=== PATIENT | female | born 1935 | race Caucasian/White ===

== ENCOUNTER 2017-07-04 01:38 | Inpatient (IN) ==
[2017-07-04] MEDS ORDERED: ONDANSETRON 4 MG/2 ML VIAL IV STA (01:50)
[2017-07-04] MEDS ORDERED: MORPHINE 2 MG/1 ML SYRINGE IV STA ×2 (01:50→03:49)
[2017-07-04] MEDS ORDERED: MORPHINE 2 MG/1 ML SYRINGE ONE ×3 (02:07→03:52)
[2017-07-04] MEDS ORDERED: ONDANSETRON 4 MG/2 ML VIAL ONE (02:07)
[2017-07-04 02:34] LABS: Basophils % 0.4 % (0.0-0.8); Eosinophils # 0.1 10*3/uL (0.0-0.87); Eosinophils % 0.9 % (0.00-10.9); Hematocrit 39.4 VOL% (35.7-47.0); Hemoglobin 13.2 GM/DL (12.0-16.0); Immature Granulocytes % 0.4 %; Immature Granulocytes Absolute 0.04 #; Lymphocytes # 2.9 10*3/uL (1.4-4.0); Lymphocytes % 26.3 % (21.3-54.2); Mean Corpuscular HGB Conc 33.5 GM/DL (32-36); Mean Corpuscular Hemoglobin 28 PG (27-34); Mean Corpuscular Volume 83.8 FL (87-102); Mean Platelet Volume 11.6 FL (9.6-12.0); Monocytes # 0.8 10*3/uL (0.11-0.8); Monocytes % 6.9 % (1.7-12.7); Neutrophils # 7.1 10*3/uL (1.4-7.4); Neutrophils % 65.1 % (38.7-73.9); Platelet Count 312 T/CUMM (130-400); Red Cell Distribution Width 14.7 % (9.3-17.3); White Blood Count 10.9 T/CUMM (4-12)
[2017-07-04 02:41] LABS: PT Patient Result 10.5 SECS
[2017-07-04] MEDS ORDERED: MAGNESIUM HYDROXIDE SUSP 30 ML UDCUP PO PRN (03:49)
[2017-07-04] MEDS: DEXTROSE 5% NACL 0.45% 1,000 ML IV SCH ×2 (06:10→16:35)
[2017-07-04 07:55] LABS: Apearance,Urine CLEAR (Clear); Bacteria,Urine Occasional /HPF (Few); Bilirubin,Urine Negative (Negative); Blood, Urine Moderate mg/dL (Negative); Glucose,Urine (UA) >=500 mg/dL (Negative); Hyaline Casts,Urine 1 /LPF (0-3); Ketones,Urine 5 mg/dL (Negative); Mucus,Urine Occasional /LPF (Occasional); Nitrite,Urine Negative (Negative); Protein,Urine Negative; RBC,Urine <1 /HPF (0-4); Urine Color Yellow (Yellow); Urine Specific Gravity 1.015 (1.001-1.035); Urine Urobilinogen < 2.0 EU/DL (0.2-1.0); WBC,Urine <1 /HPF (0-6)
[2017-07-04] MEDS ORDERED: ONDANSETRON 4 MG/2 ML VIAL IV PRN (11:25)
[2017-07-04] MEDS ORDERED: diphenhydrAMINE CAP 25 MG CAPSULE PO PRN (11:25)
[2017-07-04] MEDS ORDERED: GLUCAGON 1 MG VIAL IM PRN ×2 (11:49→12:58)
[2017-07-04] MEDS ORDERED: DEXTROSE 50% 25 GM/50 ML VIAL IV PRN ×2 (11:49→12:58)
[2017-07-04] MEDS: ATORVASTATIN 20 MG TABLET PO SCH (13:39)
[2017-07-04] MEDS: CHLORTHALIDONE 25 MG TABLET PO SCH (13:39)
[2017-07-04] MEDS: MORPHINE 2 MG/1 ML SYRINGE IV PRN ×3 (13:42→20:44)
[2017-07-04] MEDS ORDERED: INSULIN REGULAR 100 UNIT/ML SUBCUT SCH (16:30)
[2017-07-04] MEDS: INSULIN REGULAR 100 UNIT/ML SUBCUT SCH ×2 (16:35→21:49)
[2017-07-05] MEDS: DEXTROSE 5% NACL 0.45% 1,000 ML IV SCH ×3 (02:25→21:21)
[2017-07-05 06:09] LABS: Basophils % 0.2 % (0.0-0.8); Eosinophils # 0.2 10*3/uL (0.0-0.87); Eosinophils % 1.7 % (0.00-10.9); Hematocrit 34.2 VOL% (35.7-47.0); Hemoglobin 11.4 GM/DL (12.0-16.0); Immature Granulocytes % 0.3 %; Immature Granulocytes Absolute 0.03 #; Lymphocytes # 2.1 10*3/uL (1.4-4.0); Lymphocytes % 23.5 % (21.3-54.2); Mean Corpuscular HGB Conc 33.3 GM/DL (32-36); Mean Corpuscular Hemoglobin 29 PG (27-34); Mean Corpuscular Volume 85.9 FL (87-102); Mean Platelet Volume 11.1 FL (9.6-12.0); Monocytes # 0.9 10*3/uL (0.11-0.8); Neutrophils # 5.8 10*3/uL (1.4-7.4); Neutrophils % 64.3 % (38.7-73.9); Platelet Count 250 T/CUMM (130-400); Red Blood Count 3.98 MC/CUMM (3.8-5.5); Red Cell Distribution Width 14.8 % (9.3-17.3); White Blood Count 9.1 T/CUMM (4-12)
[2017-07-05 06:34] LABS: Calcium 8.1 MG/DL (8.5-10.1); Potassium 3.5 MMOL/L (3.5-5.1)
[2017-07-05 06:41] LABS: Albumin 2.9 G/DL (3.4-5.0); Bilirubin,Total 0.9 MG/DL (0.2-1.0); Calcium 8.4 MG/DL (8.5-10.1); Osmolality,Calculated 282.8 MOS/KG (273-304); Potassium 3.7 MMOL/L (3.5-5.1); Total Protein 5.7 G/DL (6.4-8.3)
[2017-07-05] MEDS: CHLORTHALIDONE 25 MG TABLET PO SCH (08:42)
[2017-07-05] MEDS: INSULIN REGULAR 100 UNIT/ML SUBCUT SCH ×4 (08:42→22:11)
[2017-07-05] MEDS ORDERED: CLINDAMYCIN INJ 50 ML IV ONE (09:52)
[2017-07-05] MEDS ORDERED: CLINDAMYCIN INJ 900 MG in PREMIX 1 EACH IV ONE (10:56)
[2017-07-05] MEDS ORDERED: BISACODYL 10 MG SUPP RECTAL PRN (11:20)
[2017-07-05] MEDS ORDERED: PROMETHAZINE 25 MG/1 ML VIAL IM PRN (11:20)
[2017-07-05] MEDS ORDERED: PROPOFOL 200 MG/20 ML VIAL IV ONE (11:32)
[2017-07-05] MEDS ORDERED: SODIUM CHLORIDE 0.9% 100 ML IV ONE (11:33)
[2017-07-05] MEDS ORDERED: MIDAZOLAM 2 MG/2 ML VIAL ONE (11:33)
[2017-07-05] MEDS ORDERED: LACTATED RINGERS 1,000 ML IV SCH (12:00)
[2017-07-05] MEDS ORDERED: HYDROmorphone 2 MG/1 ML VIAL IV PRN (12:04)
[2017-07-05] MEDS ORDERED: ONDANSETRON 4 MG/2 ML VIAL IV PRN (12:04)
[2017-07-05] MEDS ORDERED: ONDANSETRON 4 MG/2 ML VIAL ONE (12:06)
[2017-07-05] MEDS: MAGNESIUM OXIDE 400 MG TABLET PO SCH (16:20)
[2017-07-05] MEDS: MORPHINE 2 MG/1 ML SYRINGE IV PRN (17:08)
[2017-07-05] MEDS: ATORVASTATIN 20 MG TABLET PO SCH (18:14)
[2017-07-05] MEDS: metFORMIN 500 MG TABLET PO SCH (19:21)
[2017-07-05] MEDS: CLINDAMYCIN INJ 900 MG in PREMIX 1 EACH IV SCH (19:35)
[2017-07-05] MEDS: GLIMEPIRIDE 2 MG TABLET PO SCH (21:23)
[2017-07-06] MEDS: CLINDAMYCIN INJ 900 MG in PREMIX 1 EACH IV SCH (03:14)
[2017-07-06] MEDS: FONDAPARINUX 2.5 MG/0.5 ML SYRINGE SUBCUT SCH (05:50)
[2017-07-06 07:27] LABS: Basophils % 0.1 % (0.0-0.8); Eosinophils # 0.1 10*3/uL (0.0-0.87); Eosinophils % 1.8 % (0.00-10.9); Hematocrit 29.8 VOL% (35.7-47.0); Hemoglobin 9.8 GM/DL (12.0-16.0); Immature Granulocytes % 0.3 %; Immature Granulocytes Absolute 0.02 #; Lymphocytes # 1.4 10*3/uL (1.4-4.0); Mean Corpuscular HGB Conc 32.9 GM/DL (32-36); Mean Corpuscular Hemoglobin 28 PG (27-34); Mean Corpuscular Volume 85.4 FL (87-102); Mean Platelet Volume 11.5 FL (9.6-12.0); Monocytes # 0.8 10*3/uL (0.11-0.8); Monocytes % 10.9 % (1.7-12.7); Neutrophils # 5.3 10*3/uL (1.4-7.4); Neutrophils % 68.9 % (38.7-73.9); Platelet Count 203 T/CUMM (130-400); Red Blood Count 3.49 MC/CUMM (3.8-5.5); Red Cell Distribution Width 14.6 % (9.3-17.3); White Blood Count 7.7 T/CUMM (4-12)
[2017-07-06 07:43] LABS: Calcium 7.8 MG/DL (8.5-10.1); Osmolality,Calculated 270.5 MOS/KG (273-304)
[2017-07-06] MEDS: SODIUM CHLOR 0.9% KCL 20 MEQ 20 MEQ/1,000 ML BAG IV SCH ×2 (09:08→22:39)
[2017-07-06] MEDS: INSULIN REGULAR 100 UNIT/ML SUBCUT SCH ×4 (09:08→20:06)
[2017-07-06] MEDS: CHLORTHALIDONE 25 MG TABLET PO SCH (09:08)
[2017-07-06] MEDS: metFORMIN 500 MG TABLET PO SCH ×2 (09:09→16:43)
[2017-07-06] MEDS: GLIMEPIRIDE 2 MG TABLET PO SCH ×2 (09:09→20:06)
[2017-07-06] MEDS: MAGNESIUM OXIDE 400 MG TABLET PO SCH (09:09)
[2017-07-06] MEDS: ATORVASTATIN 20 MG TABLET PO SCH (09:09)
[2017-07-06] MEDS: ACETAMINOPHEN 325 MG TABLET PO PRN (14:48)
[2017-07-07] MEDS: FONDAPARINUX 2.5 MG/0.5 ML SYRINGE SUBCUT SCH (05:01)
[2017-07-07 06:08] LABS: Basophils % 0.2 % (0.0-0.8); Eosinophils # 0.3 10*3/uL (0.0-0.87); Eosinophils % 3.2 % (0.00-10.9); Hematocrit 29.1 VOL% (35.7-47.0); Immature Granulocytes % 0.5 %; Immature Granulocytes Absolute 0.04 #; Lymphocytes # 1.7 10*3/uL (1.4-4.0); Mean Corpuscular HGB Conc 34.4 GM/DL (32-36); Mean Corpuscular Hemoglobin 29 PG (27-34); Mean Corpuscular Volume 83.9 FL (87-102); Mean Platelet Volume 11.4 FL (9.6-12.0); Monocytes # 0.9 10*3/uL (0.11-0.8); Monocytes % 9.9 % (1.7-12.7); Neutrophils # 5.9 10*3/uL (1.4-7.4); Neutrophils % 67.2 % (38.7-73.9); Platelet Count 225 T/CUMM (130-400); Red Blood Count 3.47 MC/CUMM (3.8-5.5); Red Cell Distribution Width 14.7 % (9.3-17.3); White Blood Count 8.8 T/CUMM (4-12)
[2017-07-07] MEDS: INSULIN REGULAR 100 UNIT/ML SUBCUT SCH ×4 (08:15→21:02)
[2017-07-07 08:48] LABS: Albumin 2.3 G/DL (3.4-5.0); Bilirubin,Total 0.7 MG/DL (0.2-1.0); Calcium 7.9 MG/DL (8.5-10.1); Osmolality,Calculated 272.8 MOS/KG (273-304); Potassium 3.5 MMOL/L (3.5-5.1)
[2017-07-07] MEDS: ATORVASTATIN 20 MG TABLET PO SCH (10:00)
[2017-07-07] MEDS: metFORMIN 500 MG TABLET PO SCH ×2 (10:00→16:48)
[2017-07-07] MEDS: GLIMEPIRIDE 2 MG TABLET PO SCH ×2 (10:00→21:02)
[2017-07-07] MEDS: MAGNESIUM OXIDE 400 MG TABLET PO SCH (10:00)
[2017-07-07] MEDS: CHLORTHALIDONE 25 MG TABLET PO SCH (10:00)
[2017-07-07] MEDS: ACETAMINOPHEN 325 MG TABLET PO PRN (10:40)
[2017-07-07] MEDS: LACTULOSE 20 GM/30 ML UDCUP PO PRN (12:15)
[2017-07-07] MEDS: SODIUM CHLOR 0.9% KCL 20 MEQ 20 MEQ/1,000 ML BAG IV SCH (16:22)
[2017-07-08] MEDS: MORPHINE 2 MG/1 ML SYRINGE IV PRN (04:40)
[2017-07-08] MEDS: FONDAPARINUX 2.5 MG/0.5 ML SYRINGE SUBCUT SCH (05:31)
[2017-07-08 06:25] LABS: Basophils % 0.2 % (0.0-0.8); Eosinophils # 0.4 10*3/uL (0.0-0.87); Eosinophils % 4.7 % (0.00-10.9); Hematocrit 28.7 VOL% (35.7-47.0); Hemoglobin 9.5 GM/DL (12.0-16.0); Immature Granulocytes % 0.6 %; Immature Granulocytes Absolute 0.05 #; Lymphocytes # 1.5 10*3/uL (1.4-4.0); Lymphocytes % 16.6 % (21.3-54.2); Mean Corpuscular HGB Conc 33.1 GM/DL (32-36); Mean Corpuscular Hemoglobin 29 PG (27-34); Mean Corpuscular Volume 86.7 FL (87-102); Mean Platelet Volume 11.5 FL (9.6-12.0); Monocytes # 0.8 10*3/uL (0.11-0.8); Monocytes % 9.1 % (1.7-12.7); Neutrophils # 6.2 10*3/uL (1.4-7.4); Neutrophils % 68.8 % (38.7-73.9); Platelet Count 277 T/CUMM (130-400); Red Blood Count 3.31 MC/CUMM (3.8-5.5); Red Cell Distribution Width 14.6 % (9.3-17.3)
[2017-07-08 06:48] LABS: Calcium 8.3 MG/DL (8.5-10.1); Osmolality,Calculated 276.7 MOS/KG (273-304); Potassium 3.3 MMOL/L (3.5-5.1)
[2017-07-08 08:18] VITALS: BP 134/72
[2017-07-08] MEDS: SODIUM CHLOR 0.9% KCL 20 MEQ 20 MEQ/1,000 ML BAG IV SCH (09:03)
[2017-07-08] MEDS: INSULIN REGULAR 100 UNIT/ML SUBCUT SCH ×2 (09:04→13:33)
[2017-07-08] MEDS: metFORMIN 500 MG TABLET PO SCH ×2 (09:10→09:16)
[2017-07-08] MEDS: ATORVASTATIN 20 MG TABLET PO SCH (09:10)
[2017-07-08] MEDS: MAGNESIUM OXIDE 400 MG TABLET PO SCH (09:10)
[2017-07-08] MEDS: CHLORTHALIDONE 25 MG TABLET PO SCH (09:10)
[2017-07-08] MEDS: GLIMEPIRIDE 2 MG TABLET PO SCH (09:16)
[2017-07-08] MEDS ORDERED: BISACODYL 10 MG SUPP RECTAL ONE (09:18)
[2017-07-08] MEDS: LACTULOSE 20 GM/30 ML UDCUP PO PRN (09:25)
[2017-07-08] MEDS ORDERED: POTASSIUM CHLORIDE 10 MEQ TABLET PO SCH (13:30)
== END 2017-07-08 16:00 | DRG 481 ==
LOC: EDUNIT# → EDBD → N.ED 01:38 → N.EDINP 03:49 → N.3E 04:58
PROVIDERS: ADMIT Internal Medicine; ATTEND Internal Medicine

== ENCOUNTER 2020-12-12 02:53 | Inpatient (IN) ==
[2020-12-12] MEDS ORDERED: FUROSEMIDE 100 MG/10 ML VIAL IV STA (03:31)
[2020-12-12] MEDS ORDERED: MORPHINE 4 MG/1 ML VIAL IV STA (03:31)
[2020-12-12] MEDS ORDERED: ONDANSETRON 4 MG/2 ML VIAL IV STA (03:31)
[2020-12-12] MEDS ORDERED: methylPREDNISolone SOD SUC 125 MG/2 ML VIAL IV STA (03:31)
[2020-12-12] MEDS ORDERED: ALBUTEROL/IPRATROPIUM 3 ML NEB RESP TX STA (03:31)
[2020-12-12 03:47] LABS: Basophils % 0.3 % (0.0-0.8); Eosinophils # 0.1 10*3/uL (0.0-0.87); Eosinophils % 1.1 % (0.00-10.9); Hematocrit 37.8 VOL% (35.7-47.0); Hemoglobin 12.1 GM/DL (12.0-16.0); Immature Granulocytes % 0.6 %; Immature Granulocytes Absolute 0.07 #; Lymphocytes # 1.1 10*3/uL (1.4-4.0); Lymphocytes % 8.8 % (21.3-54.2); Mean Corpuscular Volume 95.7 FL (87-102); Mean Platelet Volume 11.7 FL (9.6-12.0); Monocytes % 4.8 % (1.7-12.7); Neutrophils % 84.4 % (38.7-73.9); Platelet Count 203 T/CUMM (130-400); Red Blood Count 3.95 MC/CUMM (3.8-5.5); Red Cell Distribution Width 13.5 % (9.3-17.3); White Blood Count 12.3 T/CUMM (4-12)
[2020-12-12 04:02] LABS: INR 1.1; PT Patient Result 12.4 SECS (10.5-12.0)
[2020-12-12] MEDS ORDERED: VANCOMYCIN INJ 1,000 MG in SODIUM CHLORIDE 0.9% 250 ML IV STA (04:02)
[2020-12-12 04:11] LABS: Alanine Aminotransferase 13 U/L (13-56); Albumin 3.2 G/DL (3.4-5.0); Alkaline Phosphatase 93 U/L (45-117); Aspartate Amino Transferase 10 U/L (0-37); Blood Urea Nitrogen 13 MG/DL (7-18); Calcium 8.4 MG/DL (8.5-10.1); Carbon Dioxide 21 MMOL/L (21-32); Estimated Glom Filtration Rate 50 ML/MIN; Glucose 336 MG/DL (74-106); Osmolality,Calculated 287.7 MOS/KG (273-304); Potassium 2.9 MMOL/L (3.5-5.1); Sodium 138 MMOL/L (136-145); Total Protein 6.6 G/DL (6.4-8.2)
[2020-12-12] MEDS ORDERED: MAGNESIUM SULF RIDER 2 GM/50 ML PREMIX IV STA (04:25)
[2020-12-12] MEDS ORDERED: POTASSIUM CHLORIDE 20 MEQ TABLET PO STA (04:25)
[2020-12-12] MEDS ORDERED: ENOXAPARIN 100 MG/ML SYRINGE SUBCUT STA (04:27)
[2020-12-12] MEDS ORDERED: LEVOFLOXACIN INJ 750 MG/150 ML PREMIX IV STA (04:43)
[2020-12-12 06:58] LABS: Bacteria,Urine Occasional /HPF (Few); Bilirubin,Urine Negative (Negative); Blood, Urine Negative (Negative); Glucose,Urine (UA) >=500 mg/dL (Negative); Ketones,Urine Negative (Negative); Nitrite,Urine Negative (Negative); Protein,Urine Negative; RBC,Urine 2 /HPF (0-4); Squamous Epithelial Cell,Urine Occasional /HPF (0-10); Urine Appearance CLEAR (Clear); Urine Color Yellow (Yellow); Urine Specific Gravity 1.026 (1.001-1.035); Urine Urobilinogen < 2.0 EU/DL (0.2-1.0)
[2020-12-12] MEDS ORDERED: SODIUM CHLORIDE 0.9% 1,000 ML IV SCH (08:28)
[2020-12-12] MEDS ORDERED: GLUCAGON 1 MG VIAL IM PRN (08:28)
[2020-12-12] MEDS ORDERED: ONDANSETRON 4 MG/2 ML VIAL IV PRN (08:28)
[2020-12-12] MEDS ORDERED: LEVOFLOXACIN INJ 750 MG/150 ML PREMIX IV SCH (08:28)
[2020-12-12] MEDS ORDERED: ENOXAPARIN 40 MG/0.4 ML SYRINGE SUBCUT SCH (08:28)
[2020-12-12] MEDS ORDERED: DEXTROSE 50% 25 GM/50 ML VIAL IV PRN (08:28)
[2020-12-12] MEDS: ALBUTEROL/IPRATROPIUM 3 ML NEB RESP TX SCH ×5 (08:50→23:51)
[2020-12-12] MEDS: FUROSEMIDE 40 MG/4 ML VIAL IV SCH ×2 (09:31→16:34)
[2020-12-12] MEDS: INSULIN REGULAR 100 UNIT/ML SUBCUT SCH ×4 (10:32→17:59)
[2020-12-12] MEDS: POTASSIUM BICARB EFFERVESCENT 25 MEQ TAB.EFF PO SCH (10:41)
[2020-12-12] MEDS: DOCUSATE SODIUM 100 MG CAPSULE PO SCH ×2 (10:41→20:56)
[2020-12-12] MEDS: METOPROLOL TARTRATE 25 MG TABLET PO SCH ×2 (10:41→20:56)
[2020-12-12] MEDS: ASPIRIN EC 81 MG TABLET PO SCH (10:41)
[2020-12-12] MEDS: ACETAMINOPHEN 325 MG TABLET PO PRN (10:42)
[2020-12-12] MEDS: ROSUVASTATIN 20 MG TABLET PO SCH (10:42)
[2020-12-12] MEDS: PANTOPRAZOLE 40 MG VIAL IV SCH (10:42)
[2020-12-12] MEDS: methylPREDNISolone SOD SUC 40 MG/1 ML VIAL IV SCH ×2 (10:43→16:34)
[2020-12-12 11:59] LABS: Calcium 8.2 MG/DL (8.5-10.1); Osmolality,Calculated 287.1 MOS/KG (273-304); Potassium 3.8 MMOL/L (3.5-5.1)
[2020-12-12] MEDS: SACUBITRIL/VALSARTAN 49-51 MG TABLET PO SCH ×2 (12:52→20:55)
[2020-12-12] MEDS ORDERED: CLOPIDOGREL 300 MG TABLET PO ONE (14:40)
[2020-12-12] MEDS: INSULIN GLARGINE 100 UNIT/ML SUBCUT SCH (16:33)
[2020-12-12] MEDS: FAMOTIDINE 20 MG TABLET PO SCH (16:33)
[2020-12-12] MEDS ORDERED: ENOXAPARIN 80 MG/0.8 ML SYRINGE SUBCUT SCH (18:00)
[2020-12-12] MEDS: GLIMEPIRIDE 4 MG TABLET PO SCH (20:55)
[2020-12-12] MEDS: TAMSULOSIN 0.4 MG CAPSULE PO SCH (20:55)
[2020-12-12] MEDS: MAGNESIUM OXIDE 400 MG TABLET PO SCH (20:56)
[2020-12-12] MEDS: MEMANTINE 5 MG TABLET PO SCH (20:56)
[2020-12-12] MEDS ORDERED: GLIMEPIRIDE 2 MG TABLET PO SCH (21:00)
[2020-12-13] MEDS: INSULIN REGULAR 100 UNIT/ML SUBCUT SCH ×4 (00:13→17:59)
[2020-12-13] MEDS: methylPREDNISolone SOD SUC 40 MG/1 ML VIAL IV SCH ×3 (00:18→16:54)
[2020-12-13] MEDS: ALBUTEROL/IPRATROPIUM 3 ML NEB RESP TX SCH ×5 (03:44→19:08)
[2020-12-13 04:49] LABS: Basophils % 0.1 % (0.0-0.8); Hematocrit 35.7 VOL% (35.7-47.0); Hemoglobin 11.5 GM/DL (12.0-16.0); Immature Granulocytes % 0.5 %; Immature Granulocytes Absolute 0.08 #; Lymphocytes # 0.8 10*3/uL (1.4-4.0); Lymphocytes % 5.3 % (21.3-54.2); Mean Corpuscular HGB Conc 32.2 GM/DL (32-36); Mean Corpuscular Volume 93.7 FL (87-102); Mean Platelet Volume 11.9 FL (9.6-12.0); Monocytes % 3.3 % (1.7-12.7); Neutrophils % 90.8 % (38.7-73.9); Platelet Count 220 T/CUMM (130-400); Red Blood Count 3.81 MC/CUMM (3.8-5.5); Red Cell Distribution Width 13.5 % (9.3-17.3); White Blood Count 15.2 T/CUMM (4-12)
[2020-12-13] MEDS: VANCOMYCIN INJ 1,250 MG in SODIUM CHLORIDE 0.9% 250 ML IV SCH (04:49)
[2020-12-13 05:14] LABS: Bilirubin,Total 0.5 MG/DL (0.2-1.0); Calcium 8.2 MG/DL (8.5-10.1); Osmolality,Calculated 282.7 MOS/KG (273-304); Total Protein 6.2 G/DL (6.4-8.2)
[2020-12-13 05:16] LABS: Anisocytosis Slight; Platelet Estimate Normal
[2020-12-13 05:17] LABS: Risk Ratio 2.46
[2020-12-13] MEDS: LEVOFLOXACIN INJ 750 MG/150 ML PREMIX IV SCH (05:58)
[2020-12-13] MEDS: MEMANTINE 5 MG TABLET PO SCH ×2 (08:50→20:51)
[2020-12-13] MEDS: TAMSULOSIN 0.4 MG CAPSULE PO SCH ×2 (08:50→20:51)
[2020-12-13] MEDS: MAGNESIUM OXIDE 400 MG TABLET PO SCH ×2 (08:50→20:51)
[2020-12-13] MEDS: CLOPIDOGREL 75 MG TABLET PO SCH (08:50)
[2020-12-13] MEDS: ROSUVASTATIN 20 MG TABLET PO SCH (08:50)
[2020-12-13] MEDS: FAMOTIDINE 20 MG TABLET PO SCH (08:50)
[2020-12-13] MEDS: DOCUSATE SODIUM 100 MG CAPSULE PO SCH ×2 (08:50→20:51)
[2020-12-13] MEDS: ASPIRIN EC 81 MG TABLET PO SCH (08:55)
[2020-12-13] MEDS: GLIMEPIRIDE 4 MG TABLET PO SCH ×2 (08:55→20:51)
[2020-12-13] MEDS: METOPROLOL TARTRATE 25 MG TABLET PO SCH ×2 (08:56→20:51)
[2020-12-13] MEDS: FUROSEMIDE 40 MG/4 ML VIAL IV SCH ×2 (08:56→16:54)
[2020-12-13] MEDS: PANTOPRAZOLE 40 MG VIAL IV SCH (08:56)
[2020-12-13] MEDS: INSULIN GLARGINE 100 UNIT/ML SUBCUT SCH (08:57)
[2020-12-13] MEDS: SACUBITRIL/VALSARTAN 49-51 MG TABLET PO SCH ×2 (08:57→20:51)
[2020-12-13] MEDS: POTASSIUM BICARB EFFERVESCENT 25 MEQ TAB.EFF PO SCH (10:34)
[2020-12-13] MEDS: ACETAMINOPHEN 325 MG TABLET PO PRN (10:35)
[2020-12-13] MEDS: MECLIZINE 25 MG TABLET PO PRN (10:35)
[2020-12-13] MEDS: SPIRONOLACTONE 25 MG TABLET PO SCH (12:03)
[2020-12-13] MEDS: MORPHINE 4 MG/1 ML VIAL IV PRN (13:35)
[2020-12-13] MEDS ORDERED: MAGNESIUM SULF RIDER 2 GM/50 ML PREMIX IV ONE (14:06)
[2020-12-14] MEDS: ALBUTEROL/IPRATROPIUM 3 ML NEB RESP TX SCH ×7 (00:01→23:35)
[2020-12-14] MEDS: INSULIN REGULAR 100 UNIT/ML SUBCUT SCH ×4 (00:11→18:19)
[2020-12-14] MEDS: methylPREDNISolone SOD SUC 40 MG/1 ML VIAL IV SCH ×4 (00:12→16:28)
[2020-12-14] MEDS: VANCOMYCIN INJ 1,250 MG in SODIUM CHLORIDE 0.9% 250 ML IV SCH (04:48)
[2020-12-14] MEDS: LEVOFLOXACIN INJ 750 MG/150 ML PREMIX IV SCH (05:51)
[2020-12-14 06:28] LABS: Hematocrit 35.8 VOL% (35.7-47.0); Hemoglobin 11.5 GM/DL (12.0-16.0); Immature Granulocytes Absolute 0.14 #; Lymphocytes # 0.6 10*3/uL (1.4-4.0); Lymphocytes % 4.1 % (21.3-54.2); Mean Corpuscular HGB Conc 32.1 GM/DL (32-36); Mean Corpuscular Volume 94.5 FL (87-102); Mean Platelet Volume 11.6 FL (9.6-12.0); Monocytes % 3.3 % (1.7-12.7); Neutrophils % 91.6 % (38.7-73.9); Platelet Count 215 T/CUMM (130-400); Red Blood Count 3.79 MC/CUMM (3.8-5.5); Red Cell Distribution Width 13.5 % (9.3-17.3); White Blood Count 13.6 T/CUMM (4-12)
[2020-12-14 06:41] LABS: Calcium 8.3 MG/DL (8.5-10.1); Osmolality,Calculated 286.5 MOS/KG (273-304)
[2020-12-14 07:17] LABS: Anisocytosis 1+; Band Neutrophils 5 % (0-10); Lymphocytes 4 % (20-55); Macrocytosis 1+; Platelet Estimate Normal; Segmented Neutrophils 87 % (50-85); Total Cells Counted 100
[2020-12-14] MEDS: INSULIN GLARGINE 100 UNIT/ML SUBCUT SCH (09:21)
[2020-12-14] MEDS: ASPIRIN EC 81 MG TABLET PO SCH (09:21)
[2020-12-14] MEDS: ROSUVASTATIN 20 MG TABLET PO SCH (09:22)
[2020-12-14] MEDS: FAMOTIDINE 20 MG TABLET PO SCH (09:22)
[2020-12-14] MEDS: POTASSIUM BICARB EFFERVESCENT 25 MEQ TAB.EFF PO SCH (09:22)
[2020-12-14] MEDS: TAMSULOSIN 0.4 MG CAPSULE PO SCH ×2 (09:22→21:21)
[2020-12-14] MEDS: MAGNESIUM OXIDE 400 MG TABLET PO SCH ×2 (09:22→21:21)
[2020-12-14] MEDS: MEMANTINE 5 MG TABLET PO SCH ×2 (09:22→21:22)
[2020-12-14] MEDS: DOCUSATE SODIUM 100 MG CAPSULE PO SCH ×2 (09:22→21:21)
[2020-12-14] MEDS: SPIRONOLACTONE 25 MG TABLET PO SCH (09:23)
[2020-12-14] MEDS: METOPROLOL TARTRATE 25 MG TABLET PO SCH ×2 (09:23→21:21)
[2020-12-14] MEDS: GLIMEPIRIDE 4 MG TABLET PO SCH ×2 (09:23→21:21)
[2020-12-14] MEDS: CLOPIDOGREL 75 MG TABLET PO SCH (09:23)
[2020-12-14] MEDS: LEVOFLOXACIN 250 MG TABLET PO SCH (09:25)
[2020-12-14] MEDS: FUROSEMIDE 40 MG TABLET PO SCH (09:25)
[2020-12-14] MEDS: SODIUM CHLORIDE 0.9% 1,000 ML IV SCH (09:26)
[2020-12-14] MEDS: PANTOPRAZOLE 40 MG VIAL IV SCH (09:30)
[2020-12-14] MEDS: guaiFENesin 200 MG/10 ML UDCUP PO PRN (23:00)
[2020-12-15] MEDS: INSULIN REGULAR 100 UNIT/ML SUBCUT SCH ×5 (00:10→23:58)
[2020-12-15] MEDS: methylPREDNISolone SOD SUC 40 MG/1 ML VIAL IV SCH ×3 (02:00→17:11)
[2020-12-15] MEDS: MORPHINE 4 MG/1 ML VIAL IV PRN (02:03)
[2020-12-15] MEDS: ALBUTEROL/IPRATROPIUM 3 ML NEB RESP TX SCH ×6 (02:49→23:26)
[2020-12-15] MEDS: SODIUM CHLORIDE 0.9% 1,000 ML IV SCH (06:47)
[2020-12-15] MEDS: ROSUVASTATIN 20 MG TABLET PO SCH (08:27)
[2020-12-15] MEDS: MAGNESIUM OXIDE 400 MG TABLET PO SCH ×2 (08:27→21:38)
[2020-12-15] MEDS: POTASSIUM BICARB EFFERVESCENT 25 MEQ TAB.EFF PO SCH (08:27)
[2020-12-15] MEDS: DOCUSATE SODIUM 100 MG CAPSULE PO SCH ×2 (08:27→21:38)
[2020-12-15] MEDS: MEMANTINE 5 MG TABLET PO SCH ×2 (08:28→21:38)
[2020-12-15] MEDS: GLIMEPIRIDE 4 MG TABLET PO SCH ×2 (08:28→21:42)
[2020-12-15] MEDS: FAMOTIDINE 20 MG TABLET PO SCH (08:28)
[2020-12-15] MEDS: TAMSULOSIN 0.4 MG CAPSULE PO SCH ×2 (08:28→21:38)
[2020-12-15] MEDS: SPIRONOLACTONE 25 MG TABLET PO SCH (08:28)
[2020-12-15] MEDS: LEVOFLOXACIN 250 MG TABLET PO SCH (08:28)
[2020-12-15] MEDS: ASPIRIN EC 81 MG TABLET PO SCH (08:28)
[2020-12-15] MEDS: CLOPIDOGREL 75 MG TABLET PO SCH (08:28)
[2020-12-15] MEDS: FUROSEMIDE 40 MG TABLET PO SCH (08:29)
[2020-12-15] MEDS: PANTOPRAZOLE 40 MG VIAL IV SCH (08:29)
[2020-12-15] MEDS: METOPROLOL TARTRATE 25 MG TABLET PO SCH ×2 (08:35→21:38)
[2020-12-15] MEDS: guaiFENesin 200 MG/10 ML UDCUP PO PRN ×2 (08:43→13:55)
[2020-12-15] MEDS: INSULIN GLARGINE 100 UNIT/ML SUBCUT SCH (08:43)
[2020-12-15 10:17] LABS: Calcium 8.3 MG/DL (8.5-10.1); Osmolality,Calculated 290.4 MOS/KG (273-304); Potassium 4.2 MMOL/L (3.5-5.1)
[2020-12-15] MEDS: ACETAMINOPHEN 325 MG TABLET PO PRN (13:55)
[2020-12-15] MEDS ORDERED: MAGNESIUM SULF RIDER 2 GM/50 ML PREMIX IV ONE (22:04)
[2020-12-15] MEDS: BISACODYL 5 MG TABLET PO PRN (23:46)
[2020-12-16] MEDS: guaiFENesin 200 MG/10 ML UDCUP PO PRN ×2 (00:39→14:06)
[2020-12-16] MEDS: methylPREDNISolone SOD SUC 40 MG/1 ML VIAL IV SCH ×3 (02:18→17:32)
[2020-12-16] MEDS: ALBUTEROL/IPRATROPIUM 3 ML NEB RESP TX SCH ×5 (03:30→19:49)
[2020-12-16 04:40] LABS: Basophils % 0.1 % (0.0-0.8); Hematocrit 36.9 VOL% (35.7-47.0); Hemoglobin 12.3 GM/DL (12.0-16.0); Immature Granulocytes % 0.6 %; Immature Granulocytes Absolute 0.07 #; Lymphocytes # 0.7 10*3/uL (1.4-4.0); Lymphocytes % 5.9 % (21.3-54.2); Mean Corpuscular HGB Conc 33.3 GM/DL (32-36); Mean Corpuscular Volume 94.1 FL (87-102); Mean Platelet Volume 11.7 FL (9.6-12.0); Monocytes % 4.5 % (1.7-12.7); Neutrophils % 88.9 % (38.7-73.9); Platelet Count 234 T/CUMM (130-400); Red Blood Count 3.92 MC/CUMM (3.8-5.5); Red Cell Distribution Width 13.6 % (9.3-17.3); White Blood Count 11.4 T/CUMM (4-12)
[2020-12-16 04:53] LABS: Calcium 8.6 MG/DL (8.5-10.1); Osmolality,Calculated 282.7 MOS/KG (273-304); Potassium 4.2 MMOL/L (3.5-5.1)
[2020-12-16] MEDS: INSULIN REGULAR 100 UNIT/ML SUBCUT SCH ×3 (07:01→17:32)
[2020-12-16] MEDS: BUDESONIDE 0.25 MG/2 ML NEB RESP TX SCH ×2 (07:11→19:49)
[2020-12-16] MEDS: MEMANTINE 5 MG TABLET PO SCH ×2 (08:39→21:20)
[2020-12-16] MEDS: ROSUVASTATIN 20 MG TABLET PO SCH (08:39)
[2020-12-16] MEDS: DOCUSATE SODIUM 100 MG CAPSULE PO SCH ×2 (08:39→21:20)
[2020-12-16] MEDS: FAMOTIDINE 20 MG TABLET PO SCH (08:39)
[2020-12-16] MEDS: FUROSEMIDE 40 MG TABLET PO SCH (08:39)
[2020-12-16] MEDS: GLIMEPIRIDE 4 MG TABLET PO SCH ×2 (08:39→21:20)
[2020-12-16] MEDS: SPIRONOLACTONE 25 MG TABLET PO SCH (08:39)
[2020-12-16] MEDS: LEVOFLOXACIN 250 MG TABLET PO SCH (08:39)
[2020-12-16] MEDS: MAGNESIUM OXIDE 400 MG TABLET PO SCH ×2 (08:39→21:19)
[2020-12-16] MEDS: ASPIRIN EC 81 MG TABLET PO SCH (08:39)
[2020-12-16] MEDS: METOPROLOL TARTRATE 25 MG TABLET PO SCH ×2 (08:39→21:23)
[2020-12-16] MEDS: TAMSULOSIN 0.4 MG CAPSULE PO SCH ×2 (08:39→21:20)
[2020-12-16] MEDS: POTASSIUM BICARB EFFERVESCENT 25 MEQ TAB.EFF PO SCH (08:40)
[2020-12-16] MEDS: PANTOPRAZOLE 40 MG VIAL IV SCH (08:40)
[2020-12-16] MEDS: CLOPIDOGREL 75 MG TABLET PO SCH (08:40)
[2020-12-16] MEDS ORDERED: INSULIN GLARGINE 100 UNIT/ML SUBCUT SCH (09:00)
[2020-12-16] MEDS: BISACODYL 5 MG TABLET PO PRN (14:06)
[2020-12-16] MEDS ORDERED: BENZONATATE 100 MG CAPSULE PO PRN (14:36)
[2020-12-16] MEDS ORDERED: DEXTROMETHORPHAN ER 6 MG/ML 90 ML/BOTTLE PO PRN (14:36)
[2020-12-16] MEDS: POLYETHYLENE GLYCOL POWDER 17 GM PACK PO SCH (15:57)
[2020-12-16] MEDS: ACETAMINOPHEN 325 MG TABLET PO PRN (18:28)
[2020-12-17] MEDS: ALBUTEROL/IPRATROPIUM 3 ML NEB RESP TX SCH ×4 (01:05→19:29)
[2020-12-17] MEDS: INSULIN REGULAR 100 UNIT/ML SUBCUT SCH ×4 (02:38→19:07)
[2020-12-17] MEDS: methylPREDNISolone SOD SUC 40 MG/1 ML VIAL IV SCH ×3 (03:48→18:00)
[2020-12-17 05:11] LABS: Basophils % 0.1 % (0.0-0.8); Eosinophils # 0.4 10*3/uL (0.0-0.87); Eosinophils % 3.4 % (0.00-10.9); Hematocrit 41.3 VOL% (35.7-47.0); Hemoglobin 13.6 GM/DL (12.0-16.0); Immature Granulocytes % 0.3 %; Immature Granulocytes Absolute 0.04 #; Lymphocytes % 17.5 % (21.3-54.2); Mean Corpuscular HGB Conc 32.9 GM/DL (32-36); Mean Corpuscular Volume 94.1 FL (87-102); Mean Platelet Volume 11.8 FL (9.6-12.0); Monocytes % 10.8 % (1.7-12.7); Neutrophils % 67.9 % (38.7-73.9); Platelet Count 193 T/CUMM (130-400); Red Blood Count 4.39 MC/CUMM (3.8-5.5); Red Cell Distribution Width 13.4 % (9.3-17.3); White Blood Count 11.6 T/CUMM (4-12)
[2020-12-17 05:22] LABS: Calcium 8.2 MG/DL (8.5-10.1); Osmolality,Calculated 271.2 MOS/KG (273-304); Potassium 3.8 MMOL/L (3.5-5.1)
[2020-12-17 05:36] LABS: Hypochromasia Slight; Platelet Estimate Adequate
[2020-12-17] MEDS ORDERED: MAGNESIUM SULF RIDER 2 GM/50 ML PREMIX IV ONE (07:06)
[2020-12-17] MEDS: BUDESONIDE 0.25 MG/2 ML NEB RESP TX SCH ×2 (07:08→19:29)
[2020-12-17] MEDS: ROSUVASTATIN 20 MG TABLET PO SCH (09:47)
[2020-12-17] MEDS: DOCUSATE SODIUM 100 MG CAPSULE PO SCH ×2 (09:47→20:33)
[2020-12-17] MEDS: GLIMEPIRIDE 2 MG TABLET PO SCH ×2 (09:47→20:34)
[2020-12-17] MEDS: POTASSIUM BICARB EFFERVESCENT 25 MEQ TAB.EFF PO SCH (09:47)
[2020-12-17] MEDS: METOPROLOL TARTRATE 25 MG TABLET PO SCH ×2 (09:47→20:33)
[2020-12-17] MEDS: LEVOFLOXACIN 250 MG TABLET PO SCH (09:48)
[2020-12-17] MEDS: FAMOTIDINE 20 MG TABLET PO SCH (09:48)
[2020-12-17] MEDS: CLOPIDOGREL 75 MG TABLET PO SCH (09:48)
[2020-12-17] MEDS: SPIRONOLACTONE 25 MG TABLET PO SCH (09:48)
[2020-12-17] MEDS: TAMSULOSIN 0.4 MG CAPSULE PO SCH ×2 (09:49→20:33)
[2020-12-17] MEDS: ASPIRIN EC 81 MG TABLET PO SCH (09:49)
[2020-12-17] MEDS: MAGNESIUM OXIDE 400 MG TABLET PO SCH ×2 (09:49→20:33)
[2020-12-17] MEDS: MEMANTINE 5 MG TABLET PO SCH ×2 (09:49→20:33)
[2020-12-17] MEDS: INSULIN GLARGINE 100 UNIT/ML SUBCUT SCH (09:50)
[2020-12-17] MEDS: POLYETHYLENE GLYCOL POWDER 17 GM PACK PO SCH (09:50)
[2020-12-17] MEDS: DEXTROMETHORPHAN ER 6 MG/ML 90 ML/BOTTLE PO SCH ×2 (09:51→20:34)
[2020-12-17] MEDS: PANTOPRAZOLE 40 MG VIAL IV SCH (11:25)
[2020-12-17] MEDS: FUROSEMIDE 40 MG/4 ML VIAL IV SCH (11:26)
[2020-12-17] MEDS: MECLIZINE 25 MG TABLET PO PRN (13:07)
[2020-12-17] MEDS: ACETAMINOPHEN 325 MG TABLET PO PRN (18:00)
[2020-12-18] MEDS: INSULIN REGULAR 100 UNIT/ML SUBCUT SCH ×4 (00:56→18:22)
[2020-12-18] MEDS: methylPREDNISolone SOD SUC 40 MG/1 ML VIAL IV SCH ×3 (01:06→18:20)
[2020-12-18] MEDS: ALBUTEROL/IPRATROPIUM 3 ML NEB RESP TX SCH ×4 (01:39→20:02)
[2020-12-18 04:56] LABS: Basophils % 0.1 % (0.0-0.8); Eosinophils % 0.1 % (0.00-10.9); Hematocrit 39.9 VOL% (35.7-47.0); Hemoglobin 13.2 GM/DL (12.0-16.0); Immature Granulocytes % 0.4 %; Immature Granulocytes Absolute 0.05 #; Lymphocytes # 0.9 10*3/uL (1.4-4.0); Lymphocytes % 7.2 % (21.3-54.2); Mean Corpuscular HGB Conc 33.1 GM/DL (32-36); Mean Corpuscular Volume 91.9 FL (87-102); Mean Platelet Volume 11.2 FL (9.6-12.0); Neutrophils % 89.2 % (38.7-73.9); Platelet Count 258 T/CUMM (130-400); Red Blood Count 4.34 MC/CUMM (3.8-5.5); Red Cell Distribution Width 13.2 % (9.3-17.3); White Blood Count 12.3 T/CUMM (4-12)
[2020-12-18 05:28] LABS: Calcium 8.2 MG/DL (8.5-10.1); Potassium 4.2 MMOL/L (3.5-5.1)
[2020-12-18] MEDS: BUDESONIDE 0.25 MG/2 ML NEB RESP TX SCH ×2 (07:20→20:03)
[2020-12-18] MEDS ORDERED: BISACODYL 5 MG TABLET PO ONE (07:52)
[2020-12-18] MEDS: TAMSULOSIN 0.4 MG CAPSULE PO SCH ×2 (09:50→21:02)
[2020-12-18] MEDS: LEVOFLOXACIN 250 MG TABLET PO SCH (09:50)
[2020-12-18] MEDS: CLOPIDOGREL 75 MG TABLET PO SCH (09:50)
[2020-12-18] MEDS: SPIRONOLACTONE 25 MG TABLET PO SCH (09:50)
[2020-12-18] MEDS: MEMANTINE 5 MG TABLET PO SCH ×2 (09:51→20:55)
[2020-12-18] MEDS: METOPROLOL TARTRATE 25 MG TABLET PO SCH ×2 (09:51→20:55)
[2020-12-18] MEDS: POTASSIUM CHLORIDE 20 MEQ TABLET PO SCH (09:51)
[2020-12-18] MEDS: GLIMEPIRIDE 2 MG TABLET PO SCH ×2 (09:51→20:56)
[2020-12-18] MEDS: FAMOTIDINE 20 MG TABLET PO SCH (09:51)
[2020-12-18] MEDS: ASPIRIN EC 81 MG TABLET PO SCH (09:52)
[2020-12-18] MEDS: INSULIN GLARGINE 100 UNIT/ML SUBCUT SCH (09:52)
[2020-12-18] MEDS: POTASSIUM BICARB EFFERVESCENT 25 MEQ TAB.EFF PO SCH (09:52)
[2020-12-18] MEDS: MAGNESIUM OXIDE 400 MG TABLET PO SCH ×2 (09:52→20:56)
[2020-12-18] MEDS: ROSUVASTATIN 20 MG TABLET PO SCH (09:52)
[2020-12-18] MEDS: DOCUSATE SODIUM 100 MG CAPSULE PO SCH ×2 (09:52→20:55)
[2020-12-18] MEDS: PANTOPRAZOLE 40 MG VIAL IV SCH (09:53)
[2020-12-18] MEDS: FUROSEMIDE 40 MG/4 ML VIAL IV SCH (09:53)
[2020-12-18] MEDS: POLYETHYLENE GLYCOL POWDER 17 GM PACK PO SCH (10:23)
[2020-12-18] MEDS: DEXTROMETHORPHAN ER 6 MG/ML 90 ML/BOTTLE PO SCH ×2 (10:23→20:55)
[2020-12-18] MEDS: MECLIZINE 25 MG TABLET PO PRN (12:25)
[2020-12-18] MEDS: MAGNESIUM CITRATE 300 ML BOTTLE PO SCH ×2 (18:17→21:04)
[2020-12-19] MEDS: INSULIN REGULAR 100 UNIT/ML SUBCUT SCH ×4 (00:09→17:18)
[2020-12-19] MEDS: ALBUTEROL/IPRATROPIUM 3 ML NEB RESP TX SCH ×4 (00:10→19:16)
[2020-12-19] MEDS: methylPREDNISolone SOD SUC 40 MG/1 ML VIAL IV SCH ×3 (01:35→17:18)
[2020-12-19] MEDS: MAGNESIUM CITRATE 300 ML BOTTLE PO SCH ×2 (05:50→13:54)
[2020-12-19 06:17] LABS: Albumin 2.9 G/DL (3.4-5.0); Bilirubin,Total 0.5 MG/DL (0.2-1.0); Calcium 8.7 MG/DL (8.5-10.1); Osmolality,Calculated 278.4 MOS/KG (273-304); Total Protein 6.2 G/DL (6.4-8.2)
[2020-12-19 06:20] LABS: Potassium 4.7 MMOL/L (3.5-5.1)
[2020-12-19] MEDS: BUDESONIDE 0.25 MG/2 ML NEB RESP TX SCH ×2 (07:32→19:16)
[2020-12-19] MEDS: ASPIRIN EC 81 MG TABLET PO SCH (09:12)
[2020-12-19] MEDS: ROSUVASTATIN 20 MG TABLET PO SCH (09:12)
[2020-12-19] MEDS: MAGNESIUM OXIDE 400 MG TABLET PO SCH (09:12)
[2020-12-19] MEDS: POTASSIUM CHLORIDE 20 MEQ TABLET PO SCH (09:12)
[2020-12-19] MEDS: CLOPIDOGREL 75 MG TABLET PO SCH (09:12)
[2020-12-19] MEDS: GLIMEPIRIDE 2 MG TABLET PO SCH (09:12)
[2020-12-19] MEDS: TAMSULOSIN 0.4 MG CAPSULE PO SCH (09:13)
[2020-12-19] MEDS: DOCUSATE SODIUM 100 MG CAPSULE PO SCH (09:13)
[2020-12-19] MEDS: LEVOFLOXACIN 250 MG TABLET PO SCH (09:13)
[2020-12-19] MEDS: INSULIN GLARGINE 100 UNIT/ML SUBCUT SCH (09:13)
[2020-12-19] MEDS: METOPROLOL TARTRATE 25 MG TABLET PO SCH (09:13)
[2020-12-19] MEDS: FAMOTIDINE 20 MG TABLET PO SCH (09:13)
[2020-12-19] MEDS: SPIRONOLACTONE 25 MG TABLET PO SCH (09:13)
[2020-12-19] MEDS: MEMANTINE 5 MG TABLET PO SCH (09:13)
[2020-12-19] MEDS: POTASSIUM BICARB EFFERVESCENT 25 MEQ TAB.EFF PO SCH (09:14)
[2020-12-19] MEDS: POLYETHYLENE GLYCOL POWDER 17 GM PACK PO SCH (09:14)
[2020-12-19] MEDS: FUROSEMIDE 40 MG/4 ML VIAL IV SCH (09:14)
[2020-12-19] MEDS: DEXTROMETHORPHAN ER 6 MG/ML 90 ML/BOTTLE PO SCH (09:14)
[2020-12-19] MEDS: PANTOPRAZOLE 40 MG VIAL IV SCH (09:15)
[2020-12-19] MEDS: MECLIZINE 25 MG TABLET PO PRN (13:53)
[2020-12-19] MEDS ORDERED: LIDOCAINE 5% PATCH TRANSDERM SCH (14:01)
[2020-12-19] MEDS: ACETAMINOPHEN 325 MG TABLET PO PRN (17:18)
[2020-12-19] MEDS ORDERED: MAGNESIUM CITRATE 300 ML BOTTLE PO SCH (18:00)
[2020-12-19 23:40] VITALS: BP 107/59
== END 2020-12-19 20:48 | disposition swing bed (61) | DRG 280 ==
LOC: EDBD → EDUNIT# → N.ED 02:53 → N.EDINP 04:55 → N.TELEN 05:54
PROVIDERS: ADMIT Internal Medicine; ATTEND Internal Medicine

== ENCOUNTER 2021-03-05 14:28 | Observation (INO) ==
[2021-03-05] MEDS ORDERED: ASPIRIN 325 MG TABLET PO STA (15:03)
[2021-03-05 15:49] LABS: Basophils % 0.5 % (0.0-0.8); Eosinophils # 0.3 10*3/uL (0.0-0.87); Eosinophils % 3.2 % (0.00-10.9); Hematocrit 38.3 VOL% (35.7-47.0); Hemoglobin 12.3 GM/DL (12.0-16.0); Immature Granulocytes % 0.5 %; Immature Granulocytes Absolute 0.04 #; Lymphocytes # 2.5 10*3/uL (1.4-4.0); Lymphocytes % 29.4 % (21.3-54.2); Mean Corpuscular HGB Conc 32.1 GM/DL (32-36); Mean Corpuscular Volume 91.2 FL (87-102); Mean Platelet Volume 10.6 FL (9.6-12.0); Monocytes % 7.9 % (1.7-12.7); Neutrophils % 58.5 % (38.7-73.9); Platelet Count 248 T/CUMM (130-400); Red Cell Distribution Width 14.3 % (9.3-17.3); White Blood Count 8.4 T/CUMM (4-12)
[2021-03-05 16:08] LABS: Albumin 3.1 G/DL (3.4-5.0); Bilirubin,Total 0.6 MG/DL (0.20-1.00); Calcium 9.3 MG/DL (8.5-10.1); Osmolality,Calculated 273.8 MOS/KG (273-304); Potassium 4.3 MMOL/L (3.5-5.1); Total Protein 6.3 G/DL (6.4-8.2)
[2021-03-05] MEDS ORDERED: BENZTROPINE 2 MG/2 ML AMP IV ONE (16:36)
[2021-03-05] MEDS ORDERED: DEXTROSE 50% 25 GM/50 ML SYRINGE IV ONE (16:49)
[2021-03-05] MEDS ORDERED: DEXTROSE 50% 25 GM/50 ML VIAL IV PRN ×3 (17:06→21:08)
[2021-03-05] MEDS ORDERED: GLUCAGON 1 MG VIAL IM PRN ×3 (17:06→21:08)
[2021-03-05] MEDS ORDERED: BISACODYL 5 MG TABLET PO PRN (21:08)
[2021-03-05] MEDS ORDERED: ONDANSETRON 4 MG/2 ML VIAL IV PRN (21:08)
[2021-03-05] MEDS ORDERED: ACETAMINOPHEN 325 MG TABLET PO PRN (21:08)
[2021-03-05] MEDS: MAGNESIUM OXIDE 400 MG TABLET PO SCH (21:59)
[2021-03-05] MEDS: MEMANTINE 5 MG TABLET PO SCH (21:59)
[2021-03-05] MEDS: INSULIN REGULAR 100 UNIT/ML SUBCUT SCH (21:59)
[2021-03-05] MEDS: DOCUSATE SODIUM 100 MG CAPSULE PO SCH ×2 (21:59→22:00)
[2021-03-05] MEDS: INSULIN LISPRO 100 UNIT/ML SUBCUT SCH (22:00)
[2021-03-05] MEDS: SODIUM CHLORIDE 0.9% 1,000 ML IV SCH (22:39)
[2021-03-06 05:48] LABS: Calcium 8.6 MG/DL (8.5-10.1); Osmolality,Calculated 283.5 MOS/KG (273-304); Potassium 4.6 MMOL/L (3.5-5.1)
[2021-03-06] MEDS: SODIUM CHLORIDE 0.9% 1,000 ML IV SCH ×2 (06:19→16:19)
[2021-03-06] MEDS ORDERED: CLOPIDOGREL 75 MG TABLET PO SCH (09:00)
[2021-03-06] MEDS ORDERED: SPIRONOLACTONE 25 MG TABLET PO SCH (09:00)
[2021-03-06] MEDS ORDERED: POLYETHYLENE GLYCOL POWDER 17 GM PACK PO SCH (09:00)
[2021-03-06] MEDS ORDERED: ROSUVASTATIN 20 MG TABLET PO SCH (09:00)
[2021-03-06] MEDS ORDERED: ASPIRIN EC 81 MG TABLET PO SCH (09:00)
[2021-03-06] MEDS ORDERED: PANTOPRAZOLE 40 MG TABLET PO SCH (09:00)
[2021-03-06] MEDS ORDERED: METOPROLOL SUCCINATE XL 25 MG TABLET PO SCH (09:00)
[2021-03-06] MEDS: CARBOXYMETHYLCELLULOSE 1% OPH SOLN LEFT EYE SCH ×2 (09:57→16:19)
[2021-03-06] MEDS: DOCUSATE SODIUM 100 MG CAPSULE PO SCH ×2 (09:58→10:00)
[2021-03-06] MEDS: MEMANTINE 5 MG TABLET PO SCH (09:58)
[2021-03-06] MEDS: MAGNESIUM OXIDE 400 MG TABLET PO SCH (09:58)
[2021-03-06] MEDS: INSULIN LISPRO 100 UNIT/ML SUBCUT SCH ×2 (11:09→12:31)
[2021-03-06] MEDS: INSULIN REGULAR 100 UNIT/ML SUBCUT SCH ×2 (11:09→12:32)
[2021-03-06] MEDS ORDERED: MAGNESIUM SULF RIDER 2 GM/50 ML PREMIX IV ONE (11:33)
[2021-03-06 12:55] VITALS: BP 121/46
== END 2021-03-06 15:42 ==
LOC: EDBD → EDUNIT# → N.EDINP 14:28 → N.ED 14:28 → N.TELEN 18:35
PROVIDERS: ADMIT Internal Medicine; ATTEND Internal Medicine